=== PATIENT | female | born 1955 | race Asian ===

== ENCOUNTER 2021-09-01 17:01 | Outpatient (CLI) | payer OTHER | END 2021-09-01 19:16 | disposition home or self-care (01) | LOC: RAD 17:01 | PROVIDERS: ATTEND Nurse Practitioner Family | DX: M25.522 Pain in left elbow (principal) ==

== ENCOUNTER 2021-10-31 11:10 | Outpatient (CLI) | payer OTHER | END 2021-10-31 18:56 | disposition home or self-care (01) | LOC: MRI 11:10 | PROVIDERS: ATTEND Orthopaedic Surgery | DX: M25.512 Pain in left shoulder (principal) ==